=== PATIENT | male | born 1950 | race Caucasian/White ===

== ENCOUNTER 2021-03-29 14:22 | Emergency (ER) | payer OTHER ==
[~2021-03-29] VITALS: Ht 188 cm; Wt 88.5 kg
[~2021-03-29 14:22] MED LIST: ASPI81CH PO; CEFD300 PO; NEBI5 PO; SYNTHROID175 MCG PO
[2021-03-29] MEDS ORDERED: Norco 5-325 Ta1 EACH PO ×2 (15:25→16:32)
[2021-03-29] MEDS ORDERED: LIDO700A20 TOP ×2 (15:25→16:32)
[2021-03-29] MEDS ORDERED: IBUP600 PO ×2 (15:25→16:32)
== END 2021-03-29 16:03 | disposition home or self-care (01) ==
LOC: ER 14:22
DX: S22.41XA Multiple fractures of ribs, right side, initial encounter for closed fracture (principal); I10 Essential (primary) hypertension; E03.9 Hypothyroidism, unspecified; Z79.899 Other long term (current) drug therapy; Z79.82 Long term (current) use of aspirin; W11.XXXA Fall on and from ladder, initial encounter
CPT/HCPCS: 71101; 99283-25; A9270

== ENCOUNTER 2023-02-18 07:00 | Emergency (ER) | payer OTHER ==
[~2023-02-18] VITALS: Ht 185.4 cm; Wt 86.2 kg
[~2023-02-18 07:00] MED LIST changes: +IBUP600 PO; +LIDO700A20 TOP; +Norco 5-325 Ta1 EACH PO
[2023-02-18 07:22] VITALS: BP 230/94
[2023-02-18] MEDS ORDERED: CREON DR 24,001 EACH PO (07:25)
[2023-02-18] MEDS ORDERED: OMEP20ER PO (07:25)
[2023-02-18] MEDS ORDERED: OXAYDO5 M1 PO (09:08)
[2023-02-18] MEDS ORDERED: METPRE4DP PO (09:08)
== END 2023-02-18 09:44 | disposition home or self-care (01) ==
LOC: ER 07:00
DX: M47.26 Other spondylosis with radiculopathy, lumbar region (principal); I10 Essential (primary) hypertension; E03.9 Hypothyroidism, unspecified; Z79.82 Long term (current) use of aspirin; Z79.899 Other long term (current) drug therapy
CPT/HCPCS: 72100; A9270; J1100; J1170

== ENCOUNTER 2023-02-20 06:19 | Emergency (ER) | payer OTHER ==
[~2023-02-20] VITALS: Ht 188 cm; Wt 87.1 kg
[~2023-02-20 06:19] MED LIST changes: +CREON DR 24,001 EACH PO; +METPRE4DP PO; +OMEP20ER PO; +OXAYDO5 M1 PO
[2023-02-20] MEDS ORDERED: PERCOCET 10-321 EA13 PO (09:26)
[2023-02-20] MEDS ORDERED: Robaxin750 MG PO (09:26)
[2023-02-20 09:41] VITALS: BP 147/81
== END 2023-02-20 09:40 | disposition home or self-care (01) ==
LOC: ER 06:19
DX: M54.17 Radiculopathy, lumbosacral region (principal); I10 Essential (primary) hypertension; E03.9 Hypothyroidism, unspecified; Z79.82 Long term (current) use of aspirin; Z79.899 Other long term (current) drug therapy; W22.8XXA Striking against or struck by other objects, initial encounter
CPT/HCPCS: 72131; 96374; 96375; 99284-25; A9270; J1170; J1885

== ENCOUNTER 2024-03-07 11:53 | Day surgery (SDC) | payer OTHER ==
[~2024-03-07] VITALS: Ht 188 cm; Wt 86.8 kg
[~2024-03-07 11:53] MED LIST changes: +BARIATRIC VITAMINS; +Balanced Salt Epinephrine Irrigation Solution 500 mL IR SCH; +LOSA50 PO; +Lidocaine HCl/Pf 1% 5 ML VIAL ONE; +Lidocaine HCl/Pf 1% 5 ML VIAL XX SCH; +Moxifloxacin HCL 0.5 MG/0.1 ML 0.4MLSYR LEFTEYE SCH; +NS 500 ML IV ONE; +PERCOCET 10-321 EA13 PO; +PHENYLEPHRINE\\TROPICAMIDE\\TETRACAINE OPHTHALMIC DILATING SOLN LEFTEYE PRN; +Povidone-Iodine 450 DROP/30 ML Solution LEFTEYE SCH; +Robaxin750 MG PO; +Triamcinolone Inj Susp 40 MG / ML 1ML Vial INJ SCH; +Triamcinolone Inj Susp 40 MG / ML 1ML Vial ONE
[2024-03-07] MEDS ORDERED: NS 1,000 ML IV ONE (12:14)
[2024-03-07] MEDS ORDERED: Midazolam HCl 1MG / ML 2ML Vial ONE ×2 (12:26→13:11)
[2024-03-07] MEDS ORDERED: FentaNYL Citrate 50 MCG/ML 2 ML Injection ONE (12:26)
[2024-03-07 13:55] VITALS: BP 145/75
== END 2024-03-07 13:52 | disposition home or self-care (01) ==
LOC: ORSCSDS 11:53
PROVIDERS: Ophthalmology
PROC: 08RK3JZ Replacement of Left Lens with Synthetic Substitute, Percutaneous Approach (ICD-10-PCS; principal; 2024-03-07 13:00)
DX: H25.812 Combined forms of age-related cataract, left eye (principal); Z96.1 Presence of intraocular lens; I10 Essential (primary) hypertension; E03.9 Hypothyroidism, unspecified; Z79.899 Other long term (current) drug therapy
CPT/HCPCS: J2001; J2250; J3010; J3301; J7040; V2632

== ENCOUNTER → 2025-05-26 | Outpatient (CLI) | payer OTHER ==
[~2025-05-26] MED LIST changes: -Balanced Salt Epinephrine Irrigation Solution 500 mL IR SCH; -Lidocaine HCl/Pf 1% 5 ML VIAL ONE; -Lidocaine HCl/Pf 1% 5 ML VIAL XX SCH; -Moxifloxacin HCL 0.5 MG/0.1 ML 0.4MLSYR LEFTEYE SCH; -NS 500 ML IV ONE; -PHENYLEPHRINE\\TROPICAMIDE\\TETRACAINE OPHTHALMIC DILATING SOLN LEFTEYE PRN; -Povidone-Iodine 450 DROP/30 ML Solution LEFTEYE SCH; -Triamcinolone Inj Susp 40 MG / ML 1ML Vial INJ SCH; -Triamcinolone Inj Susp 40 MG / ML 1ML Vial ONE
[2025-05-28 12:16] LABS: Stool Occult Blood Guaiac 1 Neg (Neg)
[2025-05-28 12:17] LABS: Stool Occult Blood Guaiac 2 Neg (Neg)
[2025-05-28 12:18] LABS: Stool Occult Blood Guaiac 3 Neg (Neg)
== END ==
LOC: LAB 08:00 → LAB SHORT 08:00
PROVIDERS: Internal Medicine
DX: D64.9 Anemia, unspecified (principal)
CPT/HCPCS: 82272